=== PATIENT | female | born 1980 | race Caucasian/White ===

== ENCOUNTER 2018-11-19 06:47 | Inpatient (IN) | payer BC ==
[2018-11-19] MEDS: SODIUM CHLORIDE 0.9% FLUSH 10 ML SOL IV SCH (07:25)
[2018-11-19] MEDS ORDERED: OXYTOCIN 10000 MU/ML SOL IM PRN (07:33)
[2018-11-19] MEDS ORDERED: FENTANYL 100MCG/2ML SOL IV PRN (07:33)
[2018-11-19] MEDS ORDERED: METHYLERGONOVINE MALEATE 0.2 MG/ML SOL IM PRN (07:33)
[2018-11-19] MEDS ORDERED: LACTATED RINGERS 1,000 ML IV PRN (07:33)
[2018-11-19] MEDS ORDERED: MEPIVACAINE HCL 1% MPF 30 ML/VIAL SOL INFIL PRN (07:33)
[2018-11-19] MEDS ORDERED: CARBOPROST 250 MCG/ML SOL IM PRN (07:33)
[2018-11-19 09:43] LABS: ABO A; ANTIBODY SCREEN Negative; RH TYPE Positive
[2018-11-19] MEDS ORDERED: TERBUTALINE SULFATE 1 MG/ML SOL SC PRN (09:49)
[2018-11-19] MEDS ORDERED: LACTATED RINGERS 1,000 ML IV SCH (10:00)
[2018-11-19] MEDS ORDERED: OXYTOCIN 10000 MU/ML 20,000 MU in LACTATED RINGERS 1,000 ML IV SCH (10:00)
[2018-11-19] MEDS ORDERED: OXYTOCIN 10000 MU/ML SOL ONE (10:55)
[2018-11-19] MEDS ORDERED: LACTATED RINGERS 1,000 ML ONE (10:55)
[2018-11-19] MEDS: SODIUM CHLORIDE 0.9% FLUSH 10 ML SOL IV PRN ×2 (11:11→16:16)
[2018-11-19] MEDS ORDERED: FLEET ENEMA PR PRN (16:13)
[2018-11-19] MEDS ORDERED: BISACODYL 10 MG SUP PR PRN (16:13)
[2018-11-19] MEDS ORDERED: APAP/HYDROCODONE 1 EACH TABLET PO PRN (16:13)
[2018-11-19] MEDS ORDERED: ALBUTEROL HFA 60 PUFF/INHALER INH PRN (16:13)
[2018-11-19] MEDS ORDERED: BENZOCAINE/MENTHOL 1 SPR TOP PRN (16:13)
[2018-11-19] MEDS ORDERED: METHYLERGONOVINE MALEATE 0.2 MG TAB PO PRN (16:13)
[2018-11-19] MEDS ORDERED: TEMAZEPAM 15MG 15 MG CAP PO PRN (16:13)
[2018-11-19] MEDS ORDERED: WITCH HAZEL 1 EA PAD TOP PRN (16:13)
[2018-11-19] MEDS: IBUPROFEN 600 MG TAB PO PRN (17:55)
[2018-11-19 19:24] VITALS: RESP 16
[2018-11-19] MEDS: DOCUSATE SODIUM 100 MG SGL PO SCH (20:33)
[2018-11-20] MEDS: IBUPROFEN 600 MG TAB PO PRN (00:52)
[2018-11-20] MEDS: DOCUSATE SODIUM 100 MG SGL PO SCH ×2 (09:54→20:08)
[2018-11-20] MEDS: SODIUM CHLORIDE 0.9% FLUSH 10 ML SOL IV SCH (16:24)
[2018-11-21] MEDS: DOCUSATE SODIUM 100 MG SGL PO SCH (08:37)
[2018-11-21 10:17] VITALS: BP 121/77; PULSE 85; TEMP 97; O2SAT 99
== END 2018-11-21 09:50 | disposition home or self-care (01) | DRG 560 ==
LOC: OBSVTOIN 06:47 → OB 06:47
PROVIDERS: ADMIT Family Medicine; ATTEND Family Medicine
PROC: 10E0XZZ Delivery of Products of Conception, External Approach (ICD-10-PCS; principal; 2018-11-19)
PROC: 10907ZC Drainage of Amniotic Fluid, Therapeutic from Products of Conception, Via Natural or Artificial Opening (ICD-10-PCS; 2018-11-19)
PROC: 0HQ9XZZ Repair Perineum Skin, External Approach (ICD-10-PCS; 2018-11-19)
PROC: 6A550ZT Pheresis of Cord Blood Stem Cells, Single (ICD-10-PCS; 2018-11-19)
DX: O80 Encounter for full-term uncomplicated delivery (principal); Z37.0 Single live birth; Z3A.39 39 weeks gestation of pregnancy
CPT/HCPCS: 36415; 59025; 85018; 86850; 86900; 86901; J0670; J2590; J3010; J3105; A9270-GY